=== PATIENT | female | born 1990 | race Caucasian/White ===

== ENCOUNTER 2016-12-21 23:48 | Outpatient (CLI) | payer OTHER ==
[~2016-12-21] VITALS: Ht 162.6 cm; Wt 64.5 kg
[~2016-12-21 23:48] MED LIST changes: -IBU600 MG PO; -PERCOCET 325 MG1 TA2 PO
[2016-12-22 00:24] VITALS: BP 99/56; PULSE 90; TEMP 97.8
[2016-12-22 01:20] VITALS: BP 98/55; PULSE 89
== END 2016-12-22 01:50 | disposition home or self-care (01) ==
LOC: LDRO 23:48
DX: Z34.83 Encounter for supervision of other normal pregnancy, third trimester (principal); Z3A.36 36 weeks gestation of pregnancy

== ENCOUNTER → 2016-12-21 | Outpatient (CLI) | payer OTHER ==
[~2016-12-21] VITALS: Ht 162.6 cm; Wt 65.0 kg
[~2016-12-21] MED LIST: IBU600 MG PO; PERCOCET 325 MG1 TA2 PO; PRENATAL MVI
[2016-12-21 02:54] VITALS: BP 105/62; PULSE 86; TEMP 98.6
== END ==
LOC: LDRO 02:24
DX: O99.89 Other specified diseases and conditions complicating pregnancy, childbirth and the puerperium (principal); R10.9 Unspecified abdominal pain; Z3A.36 36 weeks gestation of pregnancy

== ENCOUNTER 2016-12-23 10:42 | Outpatient (CLI) | payer OTHER ==
[~2016-12-23] VITALS: Ht 160 cm; Wt 64.5 kg
[2016-12-23 11:06] VITALS: BP 102/57; PULSE 95; TEMP 98.3
[2016-12-23 12:00] VITALS: BP 97/59; PULSE 87
[2016-12-23 12:05] LABS: BASO # 0.1 (0.0-0.2); BASO % 0.4 % (0.0-2.0); EOS # 0.2 (0.0-0.7); EOS % 2.1 % (0-4.0); GRAN # 7.7 (1.4-6.5); GRAN % 68.8 % (42.2-75.2); HEMOGLOBIN 12.2 g/dl (12.5-16.0); LYMPH # 2.1 (1.2-3.4); LYMPH % 18.2 % (20.0-51.0); MEAN CELL VOLUME 99 fl (80.0-100.0); MEAN CORPUSCULAR HEMOGLOBIN 33 pg (27.0-31.0); MEAN CORPUSCULAR HGB CONC 33 g/dl (33.0-37.0); MEAN PLATELET VOLUME 9.4 fl (7.4-10.4); MONO # 1.1 (0.1-0.6); MONO % 9.9 % (1.7-9.3); PLATELET COUNT 181 K/mm3 (130-400); REDCELL DISTRIBUTION WIDTH-CV 12.6 % (11.5-14.5); WHITE BLOOD COUNT 11.3 K/mm3 (4.8-10.8)
[2016-12-23 12:08] LABS: HEMATOCRIT 36.6 % (37.0-47.0)
== END 2016-12-23 12:35 | disposition home or self-care (01) ==
LOC: LDRO 10:42 → LDR 11:02 → LDRO 12:35
PROVIDERS: Obstetrics & Gynecology
DX: Z34.83 Encounter for supervision of other normal pregnancy, third trimester (principal); Z3A.36 36 weeks gestation of pregnancy
CPT/HCPCS: OP

== ENCOUNTER 2016-12-28 14:34 | Outpatient (CLI) | payer OTHER ==
[~2016-12-28] VITALS: Ht 160 cm; Wt 65.8 kg
[2016-12-28 14:43] VITALS: BP 108/66; PULSE 86; TEMP 98.1
== END 2016-12-28 15:20 | disposition home or self-care (01) ==
LOC: LDRO 14:34
DX: O62.9 Abnormality of forces of labor, unspecified (principal); Z3A.37 37 weeks gestation of pregnancy

== ENCOUNTER 2016-12-30 10:36 | Inpatient (IN) | payer OTHER ==
[2016-12-30] VITALS (28 sets, daily range): BP systolic 91–170; BP diastolic 50–103; PULSE 96–142; TEMP 98.2–99.8
[~2016-12-30] VITALS: Ht 162.6 cm; Wt 65.9 kg
[2016-12-30 11:34] LABS: BASO # 0.1 (0.0-0.2); BASO % 0.3 % (0.0-2.0); EOS # 0.1 (0.0-0.7); GRAN # 10.5 (1.4-6.5); GRAN % 71.3 % (42.2-75.2); HEMATOCRIT 39.4 % (37.0-47.0); HEMOGLOBIN 13.4 g/dl (12.5-16.0); LYMPH # 2.4 (1.2-3.4); MEAN CELL VOLUME 95 fl (80.0-100.0); MEAN CORPUSCULAR HEMOGLOBIN 32 pg (27.0-31.0); MEAN CORPUSCULAR HGB CONC 34 g/dl (33.0-37.0); MEAN PLATELET VOLUME 10.1 fl (7.4-10.4); MONO # 1.6 (0.1-0.6); MONO % 10.9 % (1.7-9.3); PLATELET COUNT 206 K/mm3 (130-400); RED BLOOD COUNT 4.14 M/mm3 (4.10-5.30); REDCELL DISTRIBUTION WIDTH-CV 12.8 % (11.5-14.5); WHITE BLOOD COUNT 14.7 K/mm3 (4.8-10.8)
[2016-12-31 02:00] VITALS: BP 98/61; PULSE 73; TEMP 98.7
[2016-12-31 04:30] VITALS: BP 80/46; PULSE 70; TEMP 98.6
[2016-12-31 07:57] VITALS: BP 76/40; PULSE 71; TEMP 97.6
[2016-12-31 09:56] LABS: HEMATOCRIT 38.2 % (37.0-47.0); HEMOGLOBIN 12.9 g/dl (12.5-16.0)
[2016-12-31 10:09] VITALS: BP 83/52; PULSE 68
[2016-12-31] MEDS ORDERED: IBU600 MG PO (11:47)
[2016-12-31] MEDS ORDERED: PERCOCET 325 MG1 TA2 PO (11:48)
[2016-12-31 19:30] VITALS: BP 90/59; PULSE 70; TEMP 98.8
== END 2016-12-31 22:00 | disposition home or self-care (01) | DRG 775 ==
LOC: LDRO 10:36 → LDR 11:00 → OB 21:15
PROVIDERS: Obstetrics & Gynecology
PROC: 10E0XZZ Delivery of Products of Conception, External Approach (ICD-10-PCS; principal; 2016-12-30)
DX: O75.89 Other specified complications of labor and delivery (principal); Z3A.37 37 weeks gestation of pregnancy; Z37.0 Single live birth
CPT/HCPCS: J2210; J2405; J2590; J7120

== ENCOUNTER 2017-07-29 13:01 | Outpatient (RCR) | payer OTHER ==
[~2017-07-29 13:01] MED LIST changes: +IBU600 MG PO; +PERCOCET 325 MG1 TA2 PO
== END 2017-09-15 | disposition home or self-care (01) ==
LOC: WSOH
DX: S29.012A Strain of muscle and tendon of back wall of thorax, initial encounter (principal); S16.1XXA Strain of muscle, fascia and tendon at neck level, initial encounter; X50.0XXA Overexertion from strenuous movement or load, initial encounter; Y99.0 Civilian activity done for income or pay

== ENCOUNTER 2017-10-08 20:39 | Emergency (ER) | payer OTHER ==
[~2017-10-08] VITALS: Ht 162.6 cm; Wt 54.7 kg
[2017-10-08 20:46] VITALS: TEMP 98.7
[2017-10-08] MEDS ORDERED: JOLESSA 30 MCG-1 TAB PO (22:31)
[2017-10-08 23:27] VITALS: BP 108/70; PULSE 69
== END 2017-10-08 23:20 | disposition home or self-care (01) ==
LOC: COL.ER 20:39
PROVIDERS: Emergency Medicine
DX: T58.91XA Toxic effect of carbon monoxide from unspecified source, accidental (unintentional), initial encounter (principal); G43.909 Migraine, unspecified, not intractable, without status migrainosus

== ENCOUNTER → 2018-04-23 | Outpatient (CLI) | payer OTHER ==
[~2018-04-23] MED LIST changes: +JOLESSA 30 MCG-1 TAB PO
== END ==
LOC: ZCOL.LAB 17:24
DX: K90.49 Malabsorption due to intolerance, not elsewhere classified (principal)